=== PATIENT | female | born 1985 | race Caucasian/White ===

== ENCOUNTER 2018-08-27 02:43 | Emergency (ER) | payer MEDICAID ==
[~2018-08-27] VITALS: Ht 165.1 cm; Wt 99.8 kg
[2018-08-27 02:55] VITALS: BP_SYST 133
[2018-08-27] MEDS ORDERED: NACL 0.9% 1,000 ML IV ONE (03:22)
[2018-08-27] MEDS ORDERED: MORPHINE 4 MG/ML INJ. SYRINGE IM ONE (03:30)
[2018-08-27] MEDS ORDERED: KETOROLAC TROMETHAMINE 30 MG VIAL IVP ONE (03:30)
[2018-08-27] MEDS ORDERED: ONDANSETRON HCL 4 MG/2 ML VIAL IVP ONE (03:30)
[2018-08-27 03:57] LABS: BASOPHILS # (AUTO) 0.3 K/uL (0.0-0.2); EOSINOPHILS # (AUTO) 0.1 K/uL (0.0-0.4); HEMOGLOBIN 13.6 g/dL (12.0-16.0); LYMPHOCYTES # (AUTO) 1.9 K/uL (1.0-5.5); MEAN CORPUSCULAR HEMOGLOBIN 31 pg (27-31); MEAN CORPUSCULAR HGB CONC 33 % (32-36); MEAN CORPUSCULAR VOLUME 93 fL (79.0-98.0); MONOCYTES # (AUTO) 0.5 K/uL (0.0-1.0); NEUTROPHILS # (AUTO) 2.9 K/uL (1.8-7.7); PLATELET COUNT (AUTO) 292 K/uL (130-430); RED BLOOD CELL COUNT(AUTO) 4.43 MIL/uL (4.2-6.2); RED CELL DISTRIBUTION WIDTH 12.6 % (9.0-15.0); WHITE BLOOD COUNT (AUTO) 5.7 K/uL (4.8-10.8)
[2018-08-27 04:06] LABS: CALCIUM 8.6 mg/dL (8.4-11.0); CREATININE 0.47 mg/dL (0.55-1.30)
[2018-08-27 04:10] LABS: ALBUMIN 3.1 g/dL (3.4-4.8); TOTAL BILIRUBIN 0.6 mg/dL (0.0-1.0)
[2018-08-27 04:14] LABS: POTASSIUM 4.4 mmol/L (3.5-5.1)
[2018-08-27] MEDS ORDERED: KETOROLAC TROMETHAMINE 15 MG VIAL IVP ONE ×2 (05:45→06:00)
[2018-08-27 06:15] VITALS: BP_SYST 133
== END 2018-08-27 06:15 | disposition home or self-care (01) ==
LOC: SED 02:43
DX: I88.0 Nonspecific mesenteric lymphadenitis (principal); E66.01 Morbid (severe) obesity due to excess calories; R19.7 Diarrhea, unspecified; Z68.36 Body mass index [BMI] 36.0-36.9, adult
CPT/HCPCS: 36415; 74176; 76830; 76857; 80053; 83690; 85025; 96361; 96374; 96375; 96376; 99285; J1885 ×2; J2270; J2405; J7030

== ENCOUNTER 2022-09-27 22:14 | Emergency (ER) | payer MEDICAID ==
[~2022-09-27] VITALS: Ht 162.6 cm; Wt 107.5 kg
[2022-09-27 22:33] VITALS: BP_SYST 113
--- NOTE | 2022-09-27 22:37 | NUR ---
Patient to ER bed 04 to gown for evaluation. Side rails up.
--- NOTE | 2022-09-27 22:38 | NUR ---
DR. MAYORGA AT BEDSIDE WITH PATIENT FOR EVALUATION.
--- NOTE | 2022-09-27 22:38 | NUR ---
PT FROM HOME WITH C/O MECHANICAL FALL TODAY WHILE CARRYING ITEM AND HIT HEAD ON PLANTER. PT DENIES KO AND LOC. PT AMBULATORY, AND A&O X4. VSS. SAFETY PRECAUTIONS IN PLACE AND CONNECTED TO MONITOR.
--- NOTE | 2022-09-27 22:50 | NUR ---
PT TO CT VIA WHEELCHAIR ACCOMPANIED BY STAFF AND SISTER.
--- NOTE | 2022-09-27 23:02 | NUR ---
PT BACK FROM CT VIA WHEELCHAIR ACCOMPANIED BY STAFF AND SISTER.
[2022-09-28] MEDS ORDERED: ACETAMINOPHEN 500 MG TABLET PO ONE
[2022-09-28] MEDS ORDERED: TRAM50TA2 PO (00:07)
[2022-09-28] MEDS ORDERED: ACET-2634 PO (00:07)
[2022-09-28] MEDS ORDERED: traMADol HCL HCL 50 MG TABLET (ULTRAM) PO ONE (00:15)
[2022-09-28 00:27] VITALS: BP_SYST 113
--- NOTE | 2022-09-28 00:27 | NUR ---
Patient given written and verbal discharge instructions and verbalizes understanding. ER DR. MAYORGA discussed with patient the results and treatment provided. Patient in stable condition. ID arm band removed. Rx of TYLENOL AND TRAMADOL given. Patient educated on pain management and to follow up with PMD. Pain Scale 0. Opportunity for questions provided and answered. Medication side effect fact sheet provided.
[2022-09-28] MEDS ORDERED: KETOROLAC TROMETHAMINE 60 MG/2 ML VIAL IM ONE (00:30)
== END 2022-09-28 00:27 | disposition home or self-care (01) ==
LOC: SED 22:14
DX: S00.03XA Contusion of scalp, initial encounter (principal); R42 Dizziness and giddiness; Z79.899 Other long term (current) drug therapy; W01.0XXA Fall on same level from slipping, tripping and stumbling without subsequent striking against object, initial encounter; Y93.89 Activity, other specified; Y92.89 Other specified places as the place of occurrence of the external cause; Y99.8 Other external cause status
CPT/HCPCS: 99284; 70450; 76376; 96372; J1885

== ENCOUNTER 2022-11-04 14:06 | Emergency (ER) | payer MEDICAID ==
[~2022-11-04 14:06] MED LIST: ACET-2634 PO; TRAM50TA2 PO
--- NOTE | 2022-11-04 14:30 | NUR ---
Patient left without being seen.
== END 2022-11-04 14:30 | disposition left against medical advice (07) ==
LOC: SED 14:06
DX: R10.30 Lower abdominal pain, unspecified (principal); Z53.21 Procedure and treatment not carried out due to patient leaving prior to being seen by health care provider